=== PATIENT | male | born 1945 | race Caucasian/White ===

== ENCOUNTER → 2017-03-20 | Outpatient (REF) | payer MEDICARE, OTHER ==
[2017-03-20 11:42] LABS: CHOLESTEROL LEVEL 198 MG/DL (<200); HDL CHOLESTEROL 55 MG/DL (>40); LDL CHOLESTEROL 112.8 MG/DL (<100); NON-HDL-C 143 MG/DL; TRIGLYCERIDES LEVEL 151 MG/DL (<150)
== END ==
LOC: M SFHCCLAY 08:47
DX: Z00.00 Encounter for general adult medical examination without abnormal findings (principal); E78.00 Pure hypercholesterolemia, unspecified
CPT/HCPCS: 80061

== ENCOUNTER → 2017-10-22 | Outpatient (REF) | payer MEDICARE, OTHER ==
[2017-10-22 14:10] LABS: BLOOD UREA NITROGEN 16 MG/DL (7-18)
[2017-10-22 14:10] LABS: CREATININE FOR GFR 0.83 MG/DL (0.70-1.30); GLOMERULAR FILTRATION RATE > 60.0 (>42)
== END ==
LOC: M LABDRAWC 11:29
DX: M77.11 Lateral epicondylitis, right elbow (principal)
CPT/HCPCS: 82565

== ENCOUNTER → 2017-11-10 | Outpatient (CLI) | payer MEDICARE, BC, OTHER ==
[~2017-11-10] MED LIST: CONRAY-43 43% 50ML VIAL (Q9960) As Ordered; PROHANCE 279.3MG/ML 15ML VIAL (A9576) As Ordered
== END ==
LOC: M RADPRO 06:21
DX: M77.11 Lateral epicondylitis, right elbow (principal); M25.421 Effusion, right elbow
CPT/HCPCS: 24220

== ENCOUNTER → 2017-11-24 | Outpatient (REF) | payer MEDICARE, OTHER ==
[2017-11-24 12:13] LABS: ANION GAP 7 MEQ/L (8-16); BLOOD UREA NITROGEN 18 MG/DL (7-18); CALCIUM LEVEL 8.9 MG/DL (8.8-10.2); CARBON DIOXIDE LEVEL 28 MEQ/L (21-32); CHLORIDE LEVEL 109 MEQ/L (98-107); CREATININE FOR GFR 0.73 MG/DL (0.70-1.30); GLOMERULAR FILTRATION RATE > 60.0 (>42); GLUCOSE, FASTING 86 MG/DL (70-100); POTASSIUM SERUM 4.8 MEQ/L (3.5-5.1); SODIUM LEVEL 144 MEQ/L (136-145)
== END ==
LOC: M LABDRAWC 11:18
DX: M25.521 Pain in right elbow (principal)
CPT/HCPCS: 80048

== ENCOUNTER → 2017-11-26 | Outpatient (REF) | payer MEDICARE, OTHER ==
[2017-11-26 15:15] LABS: BASO % 0.5 % (0.0-1.0); EOS # 0.1 10^3/uL (0.0-0.50); HEMATOCRIT 46.8 % (42.0-52.0); HEMOGLOBIN 15.8 g/dl (13.5-17.5); IMMATURE GRANULOCYTE % 0.2 % (0-3.0); LYMPH # 1.5 10^3/uL (1.5-4.5); LYMPH % 33.6 % (24.0-44.0); MEAN CORPUSCULAR HEMOGLOBIN 30.8 pg (27.0-33.0); MEAN CORPUSCULAR HGB CONC 33.8 g/dl (32.0-36.5); MEAN CORPUSCULAR VOLUME 91.2 fl (80.0-96.0); MONO # 0.4 10^3/uL (0.0-0.8); MONO % 9.7 % (0.0-5.0); NEUTROPHILS # 2.4 10^3/uL (1.8-7.7); PLATELET COUNT, AUTOMATED 230 10^3/uL (150-450); RED BLOOD COUNT 5.13 10^6/uL (4.30-6.10); RED CELL DISTRIBUTION WIDTH 12.3 % (11.5-14.5); WHITE BLOOD COUNT 4.4 10^3/uL (4.0-10.0)
[2017-11-26 15:24] LABS: C REACTIVE PROTEIN QUANTITATIV < 0.30 MG/DL (0.00-0.30); RHEUMATOID FACTOR QUANT < 10.0 IU/ML (<15.0)
[2017-11-26 15:24] LABS: URIC ACID 5.5 MG/DL (3.5-7.2)
[2017-11-28 00:06] LABS: ERYTHROPOIETIN 10.7 mIU/mL (2.6-18.5); Lyme Disease IgG/IgM Antibodie <0.91 ISR (0.00-0.90); Lyme Disease IgM Ab Quantitati <0.80 index (0.00-0.79)
== END ==
LOC: M LABDRAW1 13:05
DX: M17.12 Unilateral primary osteoarthritis, left knee (principal)
CPT/HCPCS: 84550

== ENCOUNTER → 2018-02-12 | Outpatient (CLI) | payer MEDICARE, OTHER | LOC: M CLY 10:03 | DX: J98.4 Other disorders of lung (principal); R06.02 Shortness of breath | CPT/HCPCS: 71046 ==

== ENCOUNTER → 2018-02-18 | Outpatient (CLI) | payer MEDICARE, BC, OTHER ==
[~2018-02-18] MED LIST changes: -CONRAY-43 43% 50ML VIAL (Q9960) As Ordered; +METHACHOLINE KIT (J7674) INH; -PROHANCE 279.3MG/ML 15ML VIAL (A9576) As Ordered
== END ==
LOC: M CARPUL 09:30
DX: R06.02 Shortness of breath (principal)
CPT/HCPCS: J7674

== ENCOUNTER → 2018-12-24 | Outpatient (REF) | payer MEDICARE, OTHER ==
[2018-12-24 12:23] LABS: BASO % 0.4 % (0.0-1.0); EOS # 0.1 10^3/uL (0.0-0.5); EOS % 2.6 % (0.0-3.0); HEMATOCRIT 45.6 % (42.0-52.0); HEMOGLOBIN 14.8 g/dl (13.5-17.5); LYMPH # 1.8 10^3/uL (1.5-5.0); LYMPH % 40.2 % (24.0-44.0); MEAN CORPUSCULAR HEMOGLOBIN 29.8 pg (27.0-33.0); MEAN CORPUSCULAR HGB CONC 32.5 g/dl (32.0-36.5); MEAN CORPUSCULAR VOLUME 91.9 fl (80.0-96.0); MONO # 0.4 10^3/uL (0.0-0.8); MONO % 8.6 % (0.0-5.0); NEUTROPHILS # 2.2 10^3/uL (1.5-8.5); PLATELET COUNT, AUTOMATED 216 10^3/uL (150-450); RED BLOOD COUNT 4.96 10^6/uL (4.30-6.10); WHITE BLOOD COUNT 4.5 10^3/uL (4.0-10.0)
[2018-12-24 12:45] LABS: ALBUMIN 3.9 GM/DL (3.2-5.2); ALT/SGPT 30 U/L (12-78); BILIRUBIN,TOTAL 0.7 MG/DL (0.2-1.0); BLOOD UREA NITROGEN 19 MG/DL (7-18); CALCIUM LEVEL 9.1 MG/DL (8.8-10.2); CARBON DIOXIDE LEVEL 28 MEQ/L (21-32); CHLORIDE LEVEL 108 MEQ/L (98-107); CHOLESTEROL LEVEL 152 MG/DL (<200); CREATININE FOR GFR 0.84 MG/DL (0.70-1.30); FREE T4 0.91 NG/DL (0.76-1.46); GLOMERULAR FILTRATION RATE > 60.0 (>42); GLUCOSE, FASTING 65 MG/DL (70-100); HDL CHOLESTEROL 51 MG/DL (>40); LDL CHOLESTEROL 80 MG/DL (<100); NON-HDL-C 101 MG/DL; POTASSIUM SERUM 4.4 MEQ/L (3.5-5.1); SODIUM LEVEL 142 MEQ/L (136-145); TOTAL PROTEIN 7.1 GM/DL (6.4-8.2); TRIGLYCERIDES LEVEL 104 MG/DL (<150)
== END ==
LOC: M SFHCCLAY 08:38
PROVIDERS: ATTEND Family Medicine
DX: R42 Dizziness and giddiness (principal); Z23 Encounter for immunization
CPT/HCPCS: 80053; 80061; 84439; 84443; 85025; 90471; 90682; G0008; G0463

== ENCOUNTER → 2019-07-12 | Outpatient (REF) | payer MEDICARE, OTHER | LOC: M LAB REF 18:16 | PROVIDERS: ATTEND Dermatology | DX: L57.0 Actinic keratosis (principal); D23.5 Other benign neoplasm of skin of trunk | CPT/HCPCS: 11102; 11103; 88305; G0463 ==

== ENCOUNTER → 2020-03-02 | Outpatient (CLI) | payer MEDICARE, BC ==
[~2020-03-02] MED LIST changes: +D-40TAB2 PO; +FLAX1CAP5 PO; +L-LY500T9 PO; -METHACHOLINE KIT (J7674) INH; +THERTAB52 PO
--- NOTE | 2020-03-02 08:16 | REP ---
INDICATION: OSTEOARTHRITIS LEFT KNEE PRE OP CHEST. COMPARISON: PA and lateral chest dated 02/12/2018. TECHNIQUE: Upright PA and lateral chest. FINDINGS: The lung horton are clear. Except for a small linear parenchymal scar in the left costophrenic angle, unchanged. Cardiac size is normal. The jose, mediastinum and skeletal structures are unremarkable. IMPRESSION: Essentially negative PA and lateral chest <Electronically signed by Lui Mathew > 03/02/20 0812
[2020-03-02 12:27] LABS: HEMATOCRIT 47.4 % (42.0-52.0); HEMOGLOBIN 15.5 g/dl (13.5-17.5); MEAN CORPUSCULAR HEMOGLOBIN 29.9 pg (27.0-33.0); MEAN CORPUSCULAR HGB CONC 32.7 g/dl (32.0-36.5); MEAN CORPUSCULAR VOLUME 91.5 fl (80.0-96.0); PLATELET COUNT, AUTOMATED 206 10^3/uL (150-450); RED BLOOD COUNT 5.18 10^6/uL (4.30-6.10); WHITE BLOOD COUNT 5.5 10^3/uL (4.0-10.0)
[2020-03-02 12:38] LABS: INR 0.95; PROTHROMBIN TIME 12.9 SECONDS (12.5-14.3)
[2020-03-02 12:48] LABS: ERYTHROCYTE SEDIMENTATION RATE 4 mm/hr (0-20)
[2020-03-02 12:51] LABS: ALT/SGPT 27 U/L (12-78); BILIRUBIN,TOTAL 0.8 MG/DL (0.2-1.0); BLOOD UREA NITROGEN 24 MG/DL (7-18); CALCIUM LEVEL 9.2 MG/DL (8.8-10.2); CARBON DIOXIDE LEVEL 29 MEQ/L (21-32); CHLORIDE LEVEL 106 MEQ/L (98-107); GLOMERULAR FILTRATION RATE > 60.0 (>42); GLUCOSE, FASTING 90 MG/DL (70-100); POTASSIUM SERUM 4.7 MEQ/L (3.5-5.1); SODIUM LEVEL 142 MEQ/L (136-145); TOTAL PROTEIN 6.9 GM/DL (6.4-8.2)
== END ==
LOC: M CLY 07:45
PROVIDERS: ATTEND Orthopaedic Surgery
DX: Z01.818 Encounter for other preprocedural examination (principal); M17.11 Unilateral primary osteoarthritis, right knee

== ENCOUNTER → 2020-03-14 | Outpatient (CLI) | payer MEDICARE, BC, OTHER | LOC: M LABSMTC 13:50 | PROVIDERS: ATTEND Anesthesiology | DX: Z01.812 Encounter for preprocedural laboratory examination (principal); Z20.828 Contact with and (suspected) exposure to other viral communicable diseases ==

== ENCOUNTER 2020-03-19 06:14 | Inpatient (IN) | payer MEDICARE, BC, OTHER ==
[2020-03-19] VITALS (7 sets, daily range): BP systolic 118–136; BP diastolic 65–80
[~2020-03-19] VITALS: Ht 188 cm; Wt 93.8 kg
[~2020-03-19 06:14] MED LIST changes: +LIDOCAINE 1% MDV 20ML VIAL SQ PRN; +LR 1,000 ML IV ONE; +ceFAZolin SOD 2 GM in IV 1 EA IV ONE
[2020-03-19] MEDS ORDERED: LIDOCAINE 2% 100MG/5ML SDV (FOR ANES.) As Ordered ONE (07:02)
[2020-03-19] MEDS ORDERED: propofoL 200 MG/20 ML VIAL As Ordered ONE ×2 (07:02→09:13)
[2020-03-19] MEDS ORDERED: BUPIVACAINE LIPOSOME/PF 1.3% 20ML VIAL (13.3MG/ML)(EXPAREL)(C9290 PER1MG) As Ordered ONE (07:12)
[2020-03-19] MEDS ORDERED: ceFAZolin 1GM VIAL (J0690 PER 500MG) As Ordered ONE (07:12)
[2020-03-19] MEDS ORDERED: EPINEPHrine INJ 1 MG/ML 1ML AMP As Ordered ONE (07:12)
[2020-03-19] MEDS ORDERED: TRANEXAMIC ACID 100 MG/ML 10ML VIAL As Ordered ONE (07:12)
[2020-03-19] MEDS ORDERED: BUPIVACAINE HCL 0.25% 10ML VIAL As Ordered ONE (07:12)
[2020-03-19] MEDS ORDERED: dexameTHASONE 10MG/1ML VIAL PRES.FREE (J1100 PER 1MG) XX ONE (07:15)
[2020-03-19] MEDS ORDERED: ROPIvacaine 0.5% 30ML INJECTION (J2795 PER 1MG) XX ONE (07:15)
[2020-03-19] MEDS ORDERED: LIDOCAINE 1% MDV 20ML VIAL XX ONE (07:15)
[2020-03-19] MEDS: MIDAZOLAM INJ 2MG/2ML VIAL (J2250 PER 1MG) IV PRN ×2 (07:18→07:19)
[2020-03-19] MEDS: fentaNYL 100 MCG/2 ML INJECTION (J3010) IV PRN ×2 (07:19→14:25)
--- NOTE | 2020-03-19 08:03 | IPN ---
PROGRESS NOTE DATE: 03/19/2020 Patient seen and examined. He wishes to go ahead with a left total knee arthroplasty. He understands the nature of this and the risks of bleeding, infection, damage to nerves, vessels, possible persistent pain, wear, loosening, blood clots, medical problems, among others.
--- NOTE | 2020-03-19 10:03 | RO ---
OPERATIVE NOTE DATE OF OPERATION: 03/19/2020 PREOPERATIVE DIAGNOSIS: Left knee osteoarthritis. POSTOPERATIVE DIAGNOSIS: Left knee osteoarthritis. PROCEDURE: Left total knee arthroplasty using an Attune rotating platform posterior stabilized size 6 femur, size 7 tibial tray, 8 polyethylene, 38 patellar button. SURGEON: Edgar Jarrell MD. ANESTHESIA: Spinal. EBL: 50. COMPLICATIONS: None. INDICATIONS: A 74-year-old gentleman who has had gradually worsening left knee pain. He wished to go ahead with a knee replacement. He understood the nature and risks associated with it. DESCRIPTION OF PROCEDURE: The patient was taken to the operating room and placed in the supine position. After spinal anesthesia was induced, the left lower extremity was prepped and draped in the usual sterile fashion. Time out was performed. Longitudinal incision was made over the anterior aspect of the knee. Subcutaneous dissection was carried out sharply. I then performed a medial parapatellar arthrotomy per routine, everted the patella, flexed the knee up, used the canal initiating reamer on the femoral side followed by the intramedullary guide set at 5 degrees of valgus, 9 mm cut. This was pinned in place, and I ended up taking 2 extra millimeters due to a flexion contracture. We then sized the femur to be a 4. This was secured with a cutting block, and the remaining cuts were made. I then placed the posterior retractor and prepared the tibial surface. The proximal tibia cut was made removing about 4 mm off the low side. This bone was removed, and the PCL remained intact. I then prepared the sulcus cut followed by the tibial tray which a size 7 fit nicely. I had used a school director to remove soft tissue and osteophytes from either side of the knee. Once the tibial tray was prepared, I then placed the trial components and was unhappy with the stability and soft tissue balance in flexion and extension. I ended up going with a posterior stabilized because the femur was lifting off in flexion, and despite trying to free up the PCL, it was simply too tight. I then prepared the box. The excess bone was removed from the box, and the trial components were then placed, and I was very pleased with the size 8 polyethylene with excellent soft tissue balance in flexion and extension and excellent range of motion. I controlled hemostasis with a cautery. I had done a medial release as well. Any remaining osteophytes were removed. I then freehand the cut the patella removing about 7 or 8 mm of bone. I sized it to be a 38. Drill holes were placed. The trial button was placed, and the knee was put through a range of motion. The patella tracked very nicely. The remaining drill holes were placed at the end of the femur, and the trial components were removed. I injected the Exparel in the deep tissues. The patient clerical assistant prepared the bone cement in the modern technique. I then cemented in the components, removed all excess bone cement, and brought the knee out in some extension. We irrigated copiously and placed the TXA in the deep wound and then closed the deep layer with #1 Vicryl suture and running Stratafix, and a final deep wound irrigation was performed prior to final closure. We then closed the subcu with 2-0 Vicryl and the skin with garett. Sterile dressing was applied. Tourniquet was deflated once the cement had hardened. Patient was taken to the recovery room in stable condition. There were no known complications. Plan will be routine postop. The patient clerical assistant was instrumental in holding retractors and assisting in mixing the bone cement and assisting in wound closure.
--- NOTE | 2020-03-19 10:28 | REP ---
INDICATION: POST OP IN PACU 2238. COMPARISON: None. TECHNIQUE: Two views obtained portably. FINDINGS: Two views of the left knee demonstrate left knee arthroplasty components in good position relative to each other and there are habematolel bones.. No fracture or subluxation is seen. Anterior skin garett are seen. Intra-articular and periarticular soft tissue emphysema is visible. Some vascular calcification is noted.. IMPRESSION: Status post left knee arthroplasty.. <Electronically signed by Rocco Cleveland > 03/19/20 [id number]
[2020-03-19] MEDS ORDERED: fentaNYL 100 MCG/2 ML INJECTION (J3010) IV PRN (10:30)
[2020-03-19] MEDS ORDERED: HYDROMORPHONE HCL 0.5 MG/ 0.5 ML SYRINGE (J1170 PER 1) IV PRN (10:30)
[2020-03-19] MEDS ORDERED: LR 1,000 ML IV SCH ×2 (10:30→11:30)
[2020-03-19] MEDS ORDERED: ONDANSETRON 4MG/2ML VIAL IV PRN ×2 (10:30→11:30)
[2020-03-19] MEDS ORDERED: oxyCODONE 5MG TAB PO PRN (10:30)
[2020-03-19] MEDS ORDERED: ACETAMINOPHEN TAB 650MG DOSE (2X325MG) PO PRN (11:30)
[2020-03-19] MEDS ORDERED: PERCOCET 5MG/325MG TAB PO PRN ×2 (11:30→17:00)
[2020-03-19] MEDS ORDERED: MORPHINE 4 MG/ML 1ML VIAL/SYRINGE (J2270) IV PRN (11:30)
[2020-03-19] MEDS ORDERED: MORPHINE 2 MG/ML 1ML VIAL (J2270) IV PRN (11:30)
--- NOTE | 2020-03-19 12:17 | HPEPDOC ---
[facility] Medical History & Physical Date of Admission Mar 19, 2020 Date of Service: Mar 19, 2020 Attending Physician: Xiomara Johnson MD History and Physical MEDICAL H&P HISTORY OF PRESENT ILLNESS: Patient is a 74-year-old male with past medical history of anxiety, symptomatic osteoarthritis of bilateral knees who presented to [facility] on 03/19/2020 for elective total knee arthroplasty. The patient has had progressively worsening left knee pain and stiffness, failed to improve with conservative management as outpatient. He is also received a prior knee scope and injections in the past which did not help much. His knee pain continue to affect his activities of daily living and weightbearing activities. There were no complications pre-, during and post-operation. Post-op patient's VS were stable. He had no acute complaints. He denied chest pain, shortness of breath, n/v/d, fevers, chills, lightheadedness, dizziness and was AAOx3. REVIEW OF SYSTEMS: CONSTITUTIONAL: Denies lack of energy, unexplained weight gain or weight loss, loss of appetite, fever, night sweats EYES: Denies eye drainage, eye pain, visual changes, dry/irritated eye EARS, NOSE, MOUTH, THROAT: Denies difficulty hearing, ringing in ears, mouth sores, loose teeth, sore throat, facial numbness or pain NECK: Denies swollen glands CARDIOVASCULAR: Denies irregular heartbeat, racing heart, chest pains, swelling of feet or legs, pain in legs with walking RESPIRATORY: Denies shortness of breath, night sweats, wheezing, sputum production, oxygen at home, coughing up blood, cough lasting > 1 month GASTROINTESTINAL: Denies abdominal pain, constipation, bloody stool, diarrhea, heartburn, nausea, vomiting GENITOURINARY: Denies painful urination, bloody urine, frequent urination, urgency, leaking urine, impotence MUSCULOSKELETAL: Denies muscle pain INTEGUMENTARY: Denies rash, itching, new skin lesion, change in existing skin lesion, hair loss or increase, breast changes. NEUROLOGICAL: Denies headaches, dizziness, difficulty walking, numbness or tingling PSYCHIATRIC: Denies depression, anxiety, recurrent bad thoughts, mood swings, hallucinations PAST MEDICAL HISTORY: Anxiety Bilateral knee OA PAST SURGICAL HISTORY: Bilateral shoulder rotator cuff repairs Juan Krishna surgery right elbow Left wrist surgery Lateral knee scopes Bilateral foot surgeries FAMILY HISTORY: Family history of thyroid disease, cancer, Parkinson's disease, hypothyroidism and heart disease SOCIAL HISTORY: Used to smoke 1 pack per day for 18 years, quit at age 27. Drinks very little alcohol, possibly twice a year. Denies illicit drug use. Lives with his in the local area. Walks independently and follows up with his primary care physician rarely. The patient is very active and attends the 5 times per week. He is a full code. ALLERGIES: Please see below. HOME MEDICATIONS: Please see below. PHYSICAL EXAMINATION: VS: please see below CONSTITUTIONAL: No acute distress, resting comfortably, AAO x 3 EYES: PERRLA, EOM intact HENT, MOUTH: Normocephalic, atraumatic, moist mucous membranes, NECK: SUPPLE, no JVD, no lymphadenopathy, no carotid bruit CV: Regular rate and rhythm, S1S2 normal, no murmurs/rubs/gallops RESPIRATORY: Clear to auscultation bilaterally, no rales/rhonchi/wheezes GI: BS positive in 4 quadrants, soft, nontender, nondistended, no rebound or guarding, no organomegaly : Deferred MUSCULOSKELETAL: Left lower ext [place] bandaged, no increased swelling or erythema around bandaging, ROM and gait not tested. No cyanosis, clubbing, joint deformity, extremity edema INTEGUMENTARY: Intact, no rashes, no lesions, no erythema NEUROLOGIC: Cranial Nerves II-XII are intact, no focal deficits PSYCHIATRIC: Mood and affect are normal LABORATORY DATA: Please see below IMAGING: Left knee XR post-op: Two views of the left knee demonstrate left knee arthroplasty components in good position relative to each other and there are [place] bones.. No fracture or subluxation is seen. Anterior skin garett are seen. Intra-articular and periarticular soft tissue emphysema is visible. Some vascular calcification is noted.. ASSESSMENT: 74 y/o M with PMH of anxiety, bilateral knee arthritis admitted post-op left knee arthroplasty. PLAN: Left knee OA s/p left knee arthroplasty, Post-op day 0 -No complications during, post-op -Pain control, PT/OT per ortho -Ortho primary Anxiety -Stable -Not on home medications DVT px -Xarelto DISPOSITION: Thank you kindly for this consult. Will continue to follow patient while inpatient. Vital Signs Vital Signs Date Time Temp Pulse Resp B/P (MAP) Pulse Ox O2 Delivery O2 Flow Rate FiO2 03/19/20 10:35 58 16 142/91 (108) 100 Room Air 03/19/20 10:05 96.4 03/19/20 07:30 3 Home Medications Scheduled Cholecalciferol (Vitamin D3) (Vitamin D-400) 10 Mcg Tablet, 10 MCG PO DAILY Flaxseed Oil (Flaxseed Oil) 1,000 Mg Capsule, Unknown Dose PO DAILY Lysine HCl (l-Lysine) 500 Mg Tablet, Unknown Dose PO DAILY Multivitamin,Therapeutic (Thera-Tabs) 1 Each Tablet, 1 TAB PO DAILY Allergies Coded Allergies: buspirone (Verified Allergy, Intermediate, felt like electrical zing pubic bone up to tongue, 03/19/20) A-FIB/CHADSVASC A-FIB History Current/History of A-Fib/PAF?: No Current PO Anticoag Therapy: No Age/Risk Factor Scoring CHADSVASC: CHADSVASC Response (Comments) Value Age Risk Factor Age 65-74 years old 1 Gender Risk Factor Male 0 Hx of CHF No 0 Hx of HTN No 0 Hx of Stroke/TIA/or VTE No 0 Hx of Diabetes No 0 Hx of Vascular Disease No 0 Total 1 Treatment Treatment ordered: Rivaroxaban Other anticoagulant ordered: Xiomara Gibson MD Mar 19, 2020 12:17
[2020-03-19] MEDS: PERCOCET 5MG/325MG TAB PO PRN ×3 (14:24→23:14)
[2020-03-19 15:09] LABS: HEMATOCRIT 47.4 % (42.0-52.0); HEMOGLOBIN 15.4 g/dl (13.5-17.5); MEAN CORPUSCULAR HEMOGLOBIN 29.6 pg (27.0-33.0); MEAN CORPUSCULAR HGB CONC 32.5 g/dl (32.0-36.5); PLATELET COUNT, AUTOMATED 213 10^3/uL (150-450); RED BLOOD COUNT 5.21 10^6/uL (4.30-6.10); WHITE BLOOD COUNT 10.8 10^3/uL (4.0-10.0)
[2020-03-19] MEDS: ceFAZolin SOD 2 GM in IV 1 EA IV SCH ×2 (16:16→23:12)
[2020-03-20 02:00] VITALS: BP 127/71
[2020-03-20] MEDS: PERCOCET 5MG/325MG TAB PO PRN ×2 (04:06→08:25)
[2020-03-20 06:00] VITALS: BP 124/71
[2020-03-20] MEDS ORDERED: MIRALAX *UNIT DOSE* 17GM PACKET PO PRN (06:15)
[2020-03-20 06:19] LABS: HEMATOCRIT 41.6 % (42.0-52.0); HEMOGLOBIN 13.5 g/dl (13.5-17.5); MEAN CORPUSCULAR HEMOGLOBIN 29.5 pg (27.0-33.0); MEAN CORPUSCULAR HGB CONC 32.5 g/dl (32.0-36.5); PLATELET COUNT, AUTOMATED 187 10^3/uL (150-450); RED BLOOD COUNT 4.57 10^6/uL (4.30-6.10); WHITE BLOOD COUNT 11.5 10^3/uL (4.0-10.0)
[2020-03-20] MEDS ORDERED: PERC5TAB12 PO (06:31)
[2020-03-20] MEDS ORDERED: XARE10TA PO (06:31)
[2020-03-20] MEDS ORDERED: MOM 30ML SUSPENSION UDC PO SCH (09:00)
[2020-03-20 10:00] VITALS: BP 121/70
--- NOTE | 2020-03-20 13:46 | IPNPDOC ---
Text Note Date of Service The patient was seen on 03/20/20. NOTE Subjective: Patient seen and examined at bedside. No acute overnight events. No new medical complaints. Objective: General: NAD HEENT: NC/AT Lungs: CTA B/L Heart: +S1S2, RRR Abd: soft, NT, +BS ASSESSMENT: 74 y/o M with PMH of anxiety, bilateral knee arthritis admitted post-op left knee arthroplasty. PLAN: #Left knee OA s/p left knee arthroplasty, Post-op day 1 -Pain control, PT/OT per ortho - follow as per primary team - Ortho #Anxiety -Stable -Not on home medications #DVT px - as per ortho DISPOSITION: As per primary team, orthopedics VS,Kane, I+O VS, Kane, I+O Laboratory Tests 03/19/20 14:48 03/20/20 05:39 Vital Signs Date Time Temp Pulse Resp B/P (MAP) Pulse Ox O2 Delivery O2 Flow Rate FiO2 03/20/20 10:00 97.9 85 18 121/70 (87) 96 Room Air 03/19/20 07:30 3 I&O- Last 24 Hours up to 6 AM 03/20/20 06:00 Intake Total 2240 ml Output Total 50 ml Balance 2190 ml JOVANY GREER MD Mar 20, 2020 13:46
[2020-03-20] MEDS ORDERED: RIVAROXABAN 10 MG TAB (XARELTO) PO SCH (18:00)
--- NOTE | 2020-03-21 10:24 | HPE ---
HISTORY AND PHYSICAL DATE OF ADMISSION: 03/19/2020 ADMITTING DIAGNOSIS: Osteoarthritis, left knee pain and stiffness. HISTORY OF PRESENT ILLNESS: This is a 74-year-old male patient with progressing worsening left knee pain and stiffness when left knee pain and stiffness failed to improve with conservative management, to include injections and a knee scope. His x-rays are notable for end-stage degenerative changes of the left knee, has pain with weightbearing activities and activities of daily living. He has elected for surgery for his continued symptoms. He has been consented by Dr. Jarrell for a left total knee arthroplasty. Medical optimization with Dr. Munguia. CURRENT MEDICATIONS: He takes no prescription medications. He recently discontinued fluoxetine as it had failed to improve his symptoms. ALLERGIES: BUSPAR. MEDICAL HISTORY: Includes anxiety, symptomatic osteoarthritis of the bilateral knees. PRIOR SURGERIES INCLUDE: Bilateral shoulder rotator cuff repairs, CMC joint arthroplasty on the left side, bilateral knee scopes, bilateral foot surgery. | FAMILY HISTORY: History of heart disease, cancer, thyroid disease, Parkinson's and hypothyroidism. SOCIAL HISTORY: He does not smoke, he does not use alcohol. He is retired. REVIEW OF SYSTEMS: Denies fevers or chills. Denies chest pain, shortness of breath or cough. Denies difficulty breathing. Denies abdominal pain. Denies nausea or vomiting. Denies recent exposure to COVID 19. Persistent pain in his left knee with weightbearing activities and activities of daily living. PHYSICAL EXAMINATION: Physical examination today reveals a well-nourished, well-developed male patient. He walks with slight limping gait, favors his left knee. Examination of the left knee reveals skin to be intact. No erythema, edema or ecchymosis. Calf is soft, nontender to palpation. There is irritability with extremes of range of motion on examination today. Patellar grind is irritable. No irritability with hip range of motion. The left leg is intact to light touch. Neck is supple without adenopathy or jugular venous distention (JVD). Lungs are clear to auscultation without rales or wheeze. Heart: Regular rate and rhythm. Abdomen: Bowel sounds are present. Height: 6'3". Weight: 200 pounds. Temperature 97.5. Blood pressure 130/70. Respirations 12. Pulse 68. LABORATORY DATA: Prothrombin time 12.9, INR 0.95, sedimentation rate of 4, WBC count of 5.5, RBC count of 5.1, hemoglobin 15.5, hematocrit 47.4, glucose 90, BUN 24, creatinine 0.9. Sodium 142, potassium 4.7. Electrocardiogram (EKG): Sinus rhythms with premature ventricular contractions (PVCs). Chest x-ray: No acute cardiopulmonary disease process noted. IMPRESSION: Symptomatic osteoarthritis of his left knee. PLAN: He has been consented by Dr. Jarrell for a left total knee arthroplasty. He knows the risks, benefits, preoperative and postoperative instructions. Those were reviewed today. He understands not to take Aleve, Advil or any NSAIDs 5 days prior to surgery, He should discontinue his [id number] medications and vitamins at least 2 days prior to surgery. He understands the importance of self quarantine after his COVID testing. He knows to be on time for the procedure. He understands the current COVID situation and what that amounts currently. We discussed he will probably be in the hospital one day. He understands this is not a pain free procedure and he may have some pain after the surgery. All of his questions were answered. Edgar Jarrell MD [facility]
== END 2020-03-20 13:20 | disposition home or self-care (01) | DRG 470 ==
LOC: M OR 06:14 → M MS5PR 13:55
PROVIDERS: ADMIT Orthopaedic Surgery; ATTEND Orthopaedic Surgery
PROC: 0SRD0J9 Replacement of Left Knee Joint with Synthetic Substitute, Cemented, Open Approach (ICD-10-PCS; principal; 2020-03-19 07:30)
DX: M17.12 Unilateral primary osteoarthritis, left knee (principal)

== ENCOUNTER → 2020-06-12 | Outpatient (REF) | payer MEDICARE, OTHER ==
[~2020-06-12] MED LIST changes: -LIDOCAINE 1% MDV 20ML VIAL SQ PRN; -LR 1,000 ML IV ONE; +PERC5TAB12 PO; +XARE10TA PO; -ceFAZolin SOD 2 GM in IV 1 EA IV ONE
== END ==
LOC: M LAB REF 18:45
PROVIDERS: ATTEND Physician Assistant
DX: L57.0 Actinic keratosis (principal)
CPT/HCPCS: 11102; 17000; 17003; 88305; G0463

== ENCOUNTER → 2021-05-24 | Outpatient (CLI) | payer MEDICARE, BC ==
[~2021-05-24] MED LIST changes: +L-LY500T23 PO; -L-LY500T9 PO
[2021-05-24 11:48] LABS: HEMATOCRIT 44.2 % (42.0-52.0); HEMOGLOBIN 14.6 g/dl (13.5-17.5); MEAN CORPUSCULAR HEMOGLOBIN 30.6 pg (27.0-33.0); MEAN CORPUSCULAR VOLUME 92.7 fl (80.0-96.0); PLATELET COUNT, AUTOMATED 189 10^3/uL (150-450); RED BLOOD COUNT 4.77 10^6/uL (4.30-6.10); WHITE BLOOD COUNT 4.7 10^3/uL (4.0-10.0)
[2021-05-24 12:00] LABS: INR 1.02; PROTHROMBIN TIME 13.8 SECONDS (12.7-14.5)
[2021-05-24 12:18] LABS: ALBUMIN 4.1 GM/DL (3.2-5.2); ALT/SGPT 37 U/L (12-78); BILIRUBIN,TOTAL 1.2 MG/DL (0.2-1.0); BLOOD UREA NITROGEN 21 MG/DL (7-18); CALCIUM LEVEL 9.1 MG/DL (8.8-10.2); CARBON DIOXIDE LEVEL 28 MEQ/L (21-32); CHLORIDE LEVEL 109 MEQ/L (98-107); CREATININE FOR GFR 0.88 MG/DL (0.70-1.30); GLOMERULAR FILTRATION RATE > 60.0 (>42); GLUCOSE, FASTING 87 MG/DL (70-100); POTASSIUM SERUM 4.1 MEQ/L (3.5-5.1); SODIUM LEVEL 142 MEQ/L (136-145); TOTAL PROTEIN 6.9 GM/DL (6.4-8.2)
[2021-05-24 12:22] LABS: ERYTHROCYTE SEDIMENTATION RATE 4 mm/hr (0-20)
== END ==
LOC: M CLY 09:09
PROVIDERS: ATTEND Orthopaedic Surgery
DX: Z01.818 Encounter for other preprocedural examination (principal); M17.11 Unilateral primary osteoarthritis, right knee

== ENCOUNTER → 2021-08-08 | Outpatient (REF) | payer MEDICARE, BC, OTHER | LOC: M SFHCDERM 14:03 | PROVIDERS: ATTEND Physician Assistant | DX: C44.519 Basal cell carcinoma of skin of other part of trunk (principal) | CPT/HCPCS: 11102; 17000; 17003; 88305; G0463 ==

== ENCOUNTER → 2021-10-03 | Outpatient (REF) | payer MEDICARE, OTHER | LOC: M LAB REF 16:40 | PROVIDERS: ATTEND Surgery | DX: C44.519 Basal cell carcinoma of skin of other part of trunk (principal) ==

== ENCOUNTER → 2021-11-22 | Outpatient (CLI) | payer MEDICARE, OTHER ==
[2021-11-22 13:30] LABS: HEMATOCRIT 44.6 % (42.0-52.0); HEMOGLOBIN 14.8 g/dl (13.5-17.5); MEAN CORPUSCULAR HEMOGLOBIN 31.2 pg (27.0-33.0); MEAN CORPUSCULAR HGB CONC 33.2 g/dl (32.0-36.5); MEAN CORPUSCULAR VOLUME 94.1 fl (80.0-96.0); PLATELET COUNT, AUTOMATED 177 10^3/uL (150-450); RED BLOOD COUNT 4.74 10^6/uL (4.30-6.10); WHITE BLOOD COUNT 5.1 10^3/uL (4.0-10.0)
[2021-11-22 14:06] LABS: CK-MB VALUE MASS 1.2 NG/ML (<3.6); MB/CK RELATIVE INDEX 1.43 (< OR =4)
[2021-11-22 14:13] LABS: ALBUMIN 3.8 GM/DL (3.2-5.2); ALT/SGPT 28 U/L (12-78); BILIRUBIN,TOTAL 0.8 MG/DL (0.2-1.0); BLOOD UREA NITROGEN 26 MG/DL (7-18); CALCIUM LEVEL 9.3 MG/DL (8.8-10.2); CARBON DIOXIDE LEVEL 28 MEQ/L (21-32); CHLORIDE LEVEL 110 MEQ/L (98-107); CHOLESTEROL LEVEL 118 MG/DL (<200); CHOLESTEROL RISK RATIO 2.185 (<5); CREATININE FOR GFR 0.78 MG/DL (0.70-1.30); GLOMERULAR FILTRATION RATE > 60.0 (>42); GLUCOSE, FASTING 83 MG/DL (70-100); HDL CHOLESTEROL 54 MG/DL (>40); LDL CHOLESTEROL 50 MG/DL (<100); NON-HDL-C 64 MG/DL; POTASSIUM SERUM 4.9 MEQ/L (3.5-5.1); SODIUM LEVEL 141 MEQ/L (136-145); TOTAL PROTEIN 6.7 GM/DL (6.4-8.2); TRIGLYCERIDES LEVEL 71 MG/DL (<150)
== END ==
LOC: M CLY 07:26
PROVIDERS: ATTEND Physician Assistant
DX: R42 Dizziness and giddiness (principal); I49.3 Ventricular premature depolarization; R07.9 Chest pain, unspecified; Z79.899 Other long term (current) drug therapy

== ENCOUNTER → 2021-12-22 | Outpatient (CLI) | payer MEDICARE, BC, OTHER ==
[~2021-12-22] MED LIST changes: +AMIO200T49 PO; +ASPI-226 PO; +ATOR1TAB21 PO
== END ==
LOC: M LABSMTC 10:13
PROVIDERS: ATTEND Anesthesiology
DX: Z01.812 Encounter for preprocedural laboratory examination (principal); Z20.822 Contact with and (suspected) exposure to COVID-19

== ENCOUNTER 2021-12-26 08:29 | Day surgery (SDC) | payer MEDICARE, BC, OTHER ==
[~2021-12-26] VITALS: Ht 190.5 cm; Wt 89.8 kg
[~2021-12-26 08:29] MED LIST changes: +NS 1,000 ML IV ONE
[2021-12-26] MEDS ORDERED: propofoL 500 MG/50 ML VIAL As Ordered ONE (08:31)
[2021-12-26 10:14] VITALS: BP 146/83
== END 2021-12-26 10:15 | disposition home or self-care (01) ==
LOC: M OPP 08:29
PROVIDERS: ATTEND Surgery
DX: Z12.11 Encounter for screening for malignant neoplasm of colon (principal); D12.2 Benign neoplasm of ascending colon; K64.0 First degree hemorrhoids; Z79.02 Long term (current) use of antithrombotics/antiplatelets; Z79.1 Long term (current) use of non-steroidal anti-inflammatories (NSAID); Z79.52 Long term (current) use of systemic steroids; Z79.899 Other long term (current) drug therapy; Z88.8 Allergy status to other drugs, medicaments and biological substances; Z99.89 Dependence on other enabling machines and devices; G47.30 Sleep apnea, unspecified; I48.91 Unspecified atrial fibrillation; F41.9 Anxiety disorder, unspecified; Z86.73 Personal history of transient ischemic attack (TIA), and cerebral infarction without residual deficits; Z85.828 Personal history of other malignant neoplasm of skin; Z87.891 Personal history of nicotine dependence

== ENCOUNTER → 2022-03-06 | Outpatient (REF) | payer MEDICARE, BC, OTHER ==
[~2022-03-06] MED LIST changes: -NS 1,000 ML IV ONE
== END ==
LOC: M SFHCDERM 13:51
PROVIDERS: ATTEND Physician Assistant
DX: D49.2 Neoplasm of unspecified behavior of bone, soft tissue, and skin (principal); C44.529 Squamous cell carcinoma of skin of other part of trunk
CPT/HCPCS: 11102; 17000; 88305; G0463

== ENCOUNTER → 2022-03-25 | Outpatient (REF) | payer MEDICARE, OTHER | LOC: M LAB REF 17:11 | PROVIDERS: ATTEND Surgery | DX: C44.529 Squamous cell carcinoma of skin of other part of trunk (principal) ==

== ENCOUNTER → 2022-05-19 | Outpatient (REF) | payer MEDICARE, OTHER ==
[2022-05-19 11:50] LABS: BASO % 0.5 % (0.0-1.0); EOS # 0.1 10^3/uL (0.0-0.5); EOS % 2.4 % (0.0-3.0); HEMATOCRIT 46.1 % (42.0-52.0); HEMOGLOBIN 15.2 g/dl (13.5-17.5); LYMPH # 1.7 10^3/uL (1.5-5.0); MEAN CORPUSCULAR VOLUME 93.9 fl (80.0-96.0); MONO # 0.5 10^3/uL (0.0-0.8); MONO % 8.5 % (2.0-8.0); NEUTROPHILS # 3.4 10^3/uL (1.5-8.5); NEUTROPHILS % 58.9 % (36.0-66.0); PLATELET COUNT, AUTOMATED 200 10^3/uL (150-450); RED BLOOD COUNT 4.91 10^6/uL (4.30-6.10); WHITE BLOOD COUNT 5.8 10^3/uL (4.0-10.0)
[2022-05-19 12:13] LABS: ALBUMIN 3.8 G/DL (3.2-5.2); ALKALINE PHOSPHATASE 72 U/L (46-116); ALT/SGPT 37 U/L (7.0-40); AST/SGOT 26 U/L (<34); BILIRUBIN,TOTAL 0.9 MG/DL (0.3-1.2); BLOOD UREA NITROGEN 20 MG/DL (9-23); CALCIUM LEVEL 8.5 MG/DL (8.3-10.6); CARBON DIOXIDE LEVEL 29 MMOL/L (20-31); CHLORIDE LEVEL 106 MMOL/L (98-107); CREATININE FOR GFR 0.92 MG/DL (0.70-1.30); GLOMERULAR FILTRATION RATE > 60.0 (>42); GLUCOSE, FASTING 91 MG/DL (74-106); POTASSIUM SERUM 4.5 MMOL/L (3.5-5.1); SODIUM LEVEL 140 MMOL/L (136-145); THYROID STIMULATING HORMONE 1.975 uIU/ML (0.55-4.78); TOTAL PROTEIN 6.7 G/DL (5.7-8.2)
== END ==
LOC: M LABDRAWC 11:16
PROVIDERS: ATTEND Internal Medicine Cardiovascular Disease
DX: I49.3 Ventricular premature depolarization (principal); R94.31 Abnormal electrocardiogram [ECG] [EKG]; R00.1 Bradycardia, unspecified; I35.1 Nonrheumatic aortic (valve) insufficiency; I34.0 Nonrheumatic mitral (valve) insufficiency; G47.33 Obstructive sleep apnea (adult) (pediatric)

== ENCOUNTER → 2022-05-22 | Outpatient (CLI) | payer MEDICARE, OTHER | LOC: M CLY 13:59 | PROVIDERS: ATTEND Physician Assistant | DX: I49.3 Ventricular premature depolarization (principal); M47.9 Spondylosis, unspecified; J84.10 Pulmonary fibrosis, unspecified ==

== ENCOUNTER → 2022-09-25 | Outpatient (REF) | payer MEDICARE, OTHER ==
[2022-09-25 12:16] LABS: BLOOD UREA NITROGEN 24 MG/DL (9-23); CALCIUM LEVEL 9.8 MG/DL (8.3-10.6); CARBON DIOXIDE LEVEL 29 MMOL/L (20-31); CHLORIDE LEVEL 107 MMOL/L (98-107); CHOLESTEROL LEVEL 127 MG/DL (<200); CHOLESTEROL RISK RATIO 2.56 (<5); CREATININE FOR GFR 0.88 MG/DL (0.70-1.30); GLOMERULAR FILTRATION RATE > 60.0 (>42); GLUCOSE, FASTING 84 MG/DL (74-106); HDL CHOLESTEROL 49.5 MG/DL (>40); LDL CHOLESTEROL 59.9 MG/DL (<100); NON-HDL-C 77.5 MG/DL; POTASSIUM SERUM 4.6 MMOL/L (3.5-5.1); SODIUM LEVEL 142 MMOL/L (136-145); TRIGLYCERIDES LEVEL 88 MG/DL (<150)
== END ==
LOC: M SFHCCLAY 08:39
PROVIDERS: ATTEND Nurse Practitioner Family
DX: F41.9 Anxiety disorder, unspecified (principal); E78.5 Hyperlipidemia, unspecified; G47.33 Obstructive sleep apnea (adult) (pediatric); R00.2 Palpitations

== ENCOUNTER → 2022-11-28 | Outpatient (CLI) | payer MEDICARE, OTHER | LOC: M CLY 07:45 | PROVIDERS: ATTEND Physician Assistant | DX: I49.3 Ventricular premature depolarization (principal); Z79.899 Other long term (current) drug therapy ==

== ENCOUNTER → 2022-11-28 | Outpatient (REF) | payer MEDICARE, OTHER ==
[2022-11-28 13:47] LABS: ALBUMIN 3.9 G/DL (3.2-5.2); BILIRUBIN,DIRECT 0.4 MG/DL (<0.4); BILIRUBIN,TOTAL 0.8 MG/DL (0.3-1.2); MAGNESIUM LEVEL 2.1 MG/DL (1.8-2.4); TOTAL PROTEIN 6.9 G/DL (5.7-8.2)
[2022-11-28 13:48] LABS: THYROID STIMULATING HORMONE 1.461 uIU/ML (0.55-4.78)
== END ==
LOC: M LABDRAWC 11:54
PROVIDERS: ATTEND Physician Assistant
DX: I49.3 Ventricular premature depolarization (principal); Z79.899 Other long term (current) drug therapy

== ENCOUNTER → 2022-12-11 | Outpatient (REF) | payer MEDICARE, OTHER | LOC: M SFHCDERM 15:32 | PROVIDERS: ATTEND Physician Assistant | DX: C44.519 Basal cell carcinoma of skin of other part of trunk (principal); D23.39 Other benign neoplasm of skin of other parts of face ==

== ENCOUNTER → 2023-03-31 | Outpatient (REF) | payer MEDICARE, BC, OTHER ==
[2023-03-31 12:26] LABS: ALKALINE PHOSPHATASE 72 U/L (46-116); ALT/SGPT 30 U/L (7.0-40); AST/SGOT 23 U/L (<34); BILIRUBIN,TOTAL 0.9 MG/DL (0.3-1.2); BLOOD UREA NITROGEN 18 MG/DL (9-23); CALCIUM LEVEL 9.2 MG/DL (8.3-10.6); CARBON DIOXIDE LEVEL 29 MMOL/L (20-31); CHLORIDE LEVEL 107 MMOL/L (98-107); CHOLESTEROL LEVEL 113 MG/DL (<200); CHOLESTEROL RISK RATIO 2.19 (<5); CREATININE FOR GFR 0.87 MG/DL (0.70-1.30); GLOMERULAR FILTRATION RATE > 60.0 (>42); GLUCOSE, FASTING 94 MG/DL (74-106); HDL CHOLESTEROL 51.4 MG/DL (>40); LDL CHOLESTEROL 46.6 MG/DL (<100); NON-HDL-C 61.6 MG/DL; SODIUM LEVEL 140 MMOL/L (136-145); THYROID STIMULATING HORMONE 1.189 uIU/ML (0.55-4.78); TOTAL PROTEIN 6.8 G/DL (5.7-8.2); TRIGLYCERIDES LEVEL 75 MG/DL (<150)
[2023-03-31 12:27] LABS: FREE T4 1.39 NG/DL (0.89-1.76)
[2023-03-31 12:38] LABS: HEMOGLOBIN A1c 5.5 % (4.0-6.0)
== END ==
LOC: M SFHCCLAY 08:19
PROVIDERS: ATTEND Nurse Practitioner Family
DX: Z00.00 Encounter for general adult medical examination without abnormal findings (principal); J30.9 Allergic rhinitis, unspecified; Z85.828 Personal history of other malignant neoplasm of skin; F41.9 Anxiety disorder, unspecified; G47.33 Obstructive sleep apnea (adult) (pediatric); E78.5 Hyperlipidemia, unspecified; R09.81 Nasal congestion; R00.2 Palpitations; Z79.899 Other long term (current) drug therapy

== ENCOUNTER → 2023-05-29 | Outpatient (CLI) | payer MEDICARE, BC | LOC: M PLAIMG 07:24 | PROVIDERS: ATTEND Physician Assistant | DX: I08.0 Rheumatic disorders of both mitral and aortic valves (principal); I77.810 Thoracic aortic ectasia; R00.1 Bradycardia, unspecified ==

== ENCOUNTER → 2023-06-29 | Outpatient (REF) | payer MEDICARE, BC ==
[2023-06-30 12:40] LABS: APPEARANCE, URINE CLEAR (CLEAR); BACTERIA, URINE AUTO NEGATIVE (NEGATIVE); BILIRUBIN, URINE AUTO NEGATIVE (NEGATIVE); BLOOD, URINE BLOOD NEGATIVE (NEGATIVE); COLOR, URINE YELLOW (YELLOW); GLUCOSE, URINE (UA) AUTO NEGATIVE (NEGATIVE); KETONE, URINE AUTO NEGATIVE (NEGATIVE); LEUKOCYTE ESTERASE, URINE AUTO NEGATIVE (NEGATIVE); NITRITE, URINE AUTO NEGATIVE (NEGATIVE); PROTEIN, URINE AUTO NEGATIVE (NEGATIVE); RBC, URINE AUTO 0 /HPF (0-3); SPECIFIC GRAVITY URINE AUTO 1.008 (1.002-1.035); SQUAMOUS EPITHELIAL CELL UR AU 0 /HPF (0-6); UROBILINOGEN, URINE AUTO 0.2 mg/dL (0.0-2.0); WBC, URINE AUTO 1 /HPF (0-3)
== END ==
LOC: M SFHCCLAY 14:42
PROVIDERS: ATTEND Physician Assistant
DX: R39.15 Urgency of urination (principal); Z12.5 Encounter for screening for malignant neoplasm of prostate; Z79.899 Other long term (current) drug therapy; Z79.51 Long term (current) use of inhaled steroids; Z79.82 Long term (current) use of aspirin
CPT/HCPCS: 81001; 87086; G0103

== ENCOUNTER → 2023-12-03 | Outpatient (REF) | payer MEDICARE, OTHER ==
[2023-12-03 13:01] LABS: ALBUMIN 4.1 G/DL (3.2-5.2); ALKALINE PHOSPHATASE 79 U/L (46-116); ALT/SGPT 27 U/L (7.0-40); AST/SGOT 19 U/L (<34); BLOOD UREA NITROGEN 24 MG/DL (9-23); CALCIUM LEVEL 9.7 MG/DL (8.3-10.6); CARBON DIOXIDE LEVEL 30 MMOL/L (20-31); CHLORIDE LEVEL 110 MMOL/L (98-107); CREATININE FOR GFR 0.92 MG/DL (0.70-1.30); GLOMERULAR FILTRATION RATE > 60.0 (>42); GLUCOSE, FASTING 90 MG/DL (74-106); MAGNESIUM LEVEL 2.2 MG/DL (1.8-2.4); POTASSIUM SERUM 4.3 MMOL/L (3.5-5.1); SODIUM LEVEL 143 MMOL/L (136-145); TOTAL PROTEIN 7.2 G/DL (5.7-8.2)
[2023-12-03 13:04] LABS: THYROID STIMULATING HORMONE 1.831 uIU/ML (0.55-4.78)
== END ==
LOC: M LABDRAWC 11:51
PROVIDERS: ATTEND Physician Assistant
DX: I49.3 Ventricular premature depolarization (principal); E07.9 Disorder of thyroid, unspecified

== ENCOUNTER → 2023-12-22 | Outpatient (REF) | payer MEDICARE, OTHER, BC | LOC: M SFHCDERM 17:44 | PROVIDERS: ATTEND Physician Assistant | DX: D04.22 Carcinoma in situ of skin of left ear and external auricular canal (principal) ==

== ENCOUNTER → 2024-02-16 | Outpatient (REF) | payer MEDICARE, OTHER | LOC: M SFHCDERM 17:24 | PROVIDERS: ATTEND Physician Assistant | DX: D04.5 Carcinoma in situ of skin of trunk (principal) ==

== ENCOUNTER → 2024-04-06 | Outpatient (REF) | payer MEDICARE, BC ==
[2024-04-06 12:23] LABS: ALBUMIN 3.9 G/DL (3.2-5.2); ALKALINE PHOSPHATASE 76 U/L (40-129); ALT/SGPT 37 U/L (7.0-40); AST/SGOT 22 U/L (<34); BILIRUBIN,TOTAL 0.9 MG/DL (0.3-1.2); BLOOD UREA NITROGEN 23 MG/DL (9-23); CALCIUM LEVEL 9.3 MG/DL (8.3-10.6); CARBON DIOXIDE LEVEL 29 MMOL/L (20-31); CHLORIDE LEVEL 107 MMOL/L (98-107); CHOLESTEROL LEVEL 130 MG/DL (<200); CHOLESTEROL RISK RATIO 2.34 (<5); CREATININE FOR GFR 0.91 MG/DL (0.70-1.30); FREE T4 1.42 NG/DL (0.89-1.76); GLOMERULAR FILTRATION RATE > 60.0 (>42); GLUCOSE, FASTING 108 MG/DL (74-106); HDL CHOLESTEROL 55.5 MG/DL (>40); LDL CHOLESTEROL 58.9 MG/DL (<100); NON-HDL-C 74.5 MG/DL; POTASSIUM SERUM 4.3 MMOL/L (3.5-5.1); SODIUM LEVEL 144 MMOL/L (136-145); THYROID STIMULATING HORMONE 0.781 uIU/ML (0.55-4.78); TOTAL PROTEIN 7.4 G/DL (5.7-8.2); TRIGLYCERIDES LEVEL 78 MG/DL (<150)
[2024-04-06 13:11] LABS: HEMOGLOBIN A1c 5.5 % (4.0-6.0)
== END ==
LOC: M SFHCCLAY 08:53
PROVIDERS: ATTEND Nurse Practitioner Family
DX: Z00.00 Encounter for general adult medical examination without abnormal findings (principal); R45.4 Irritability and anger; F41.8 Other specified anxiety disorders; G47.33 Obstructive sleep apnea (adult) (pediatric); E78.5 Hyperlipidemia, unspecified; Z85.828 Personal history of other malignant neoplasm of skin; Z79.899 Other long term (current) drug therapy

== ENCOUNTER → 2024-04-14 | Outpatient (REF) | payer MEDICARE, BC | LOC: M SFHCDERM 17:35 | PROVIDERS: ATTEND Physician Assistant | DX: L82.1 Other seborrheic keratosis (principal); L90.5 Scar conditions and fibrosis of skin ==

== ENCOUNTER → 2024-05-05 | Outpatient (CLI) | payer MEDICARE, BC ==
[2024-05-05 11:57] LABS: HEMATOCRIT 44.6 % (42.0-52.0); HEMOGLOBIN 14.8 g/dl (13.5-17.5); MEAN CORPUSCULAR HGB CONC 33.2 g/dl (32.0-36.5); MEAN CORPUSCULAR VOLUME 93.5 fl (80.0-96.0); PLATELET COUNT, AUTOMATED 185 10^3/uL (150-450); RED BLOOD COUNT 4.77 10^6/uL (4.30-6.10); WHITE BLOOD COUNT 6.4 10^3/uL (4.0-10.0)
== END ==
LOC: M EKG 09:00
PROVIDERS: ATTEND Physician Assistant
DX: R06.02 Shortness of breath (principal); I49.3 Ventricular premature depolarization

== ENCOUNTER → 2024-05-05 | Outpatient (CLI) | payer MEDICARE, BC | LOC: M CLY 06:54 | PROVIDERS: ATTEND Physician Assistant | DX: R06.02 Shortness of breath (principal); I49.3 Ventricular premature depolarization ==

== ENCOUNTER → 2024-05-12 | Outpatient (CLI) | payer MEDICARE, BC | LOC: M CARPUL 13:31 | PROVIDERS: ATTEND Physician Assistant | DX: R06.02 Shortness of breath (principal) ==

== ENCOUNTER → 2024-05-31 | Outpatient (REF) | payer MEDICARE, BC ==
[2024-05-31 18:25] LABS: ALKALINE PHOSPHATASE 73 U/L (40-129); ALT/SGPT 33 U/L (7.0-40); AST/SGOT 22 U/L (<34); BILIRUBIN,TOTAL 0.8 MG/DL (0.3-1.2); BLOOD UREA NITROGEN 15 MG/DL (9-23); C REACTIVE PROTEIN QUANTITATIV 15.04 MG/DL (<1.0); CALCIUM LEVEL 8.4 MG/DL (8.3-10.6); CARBON DIOXIDE LEVEL 27 MMOL/L (20-31); CHLORIDE LEVEL 104 MMOL/L (98-107); CREATININE FOR GFR 0.78 MG/DL (0.70-1.30); GLOMERULAR FILTRATION RATE > 60.0 (>42); GLUCOSE, FASTING 115 MG/DL (74-106); POTASSIUM SERUM 3.7 MMOL/L (3.5-5.1); SODIUM LEVEL 141 MMOL/L (136-145); TOTAL PROTEIN 6.7 G/DL (5.7-8.2)
[2024-05-31 18:34] LABS: HEMATOCRIT 42.9 % (42.0-52.0); HEMOGLOBIN 14.4 g/dl (13.5-17.5); MEAN CORPUSCULAR HGB CONC 33.6 g/dl (32.0-36.5); MEAN CORPUSCULAR VOLUME 92.5 fl (80.0-96.0); PLATELET COUNT, AUTOMATED 207 10^3/uL (150-450); RED BLOOD COUNT 4.64 10^6/uL (4.30-6.10); WHITE BLOOD COUNT 10.5 10^3/uL (4.0-10.0)
[2024-05-31 18:37] LABS: PROCALCITONIN 0.08 ng/ml
[2024-05-31 19:41] LABS: EOSINOPHILS 2 % (0-3); LYMPHOCYTES 24 % (16-44); MONOCYTES 4 % (0-5); NEUTROPHILS 70 % (28-66); PLATELET ESTIMATE NORMAL (NORMAL)
== END ==
LOC: M SFHCCLAY 10:39
PROVIDERS: ATTEND Physician Assistant Medical
DX: R05.1 Acute cough (principal)

== ENCOUNTER → 2024-06-02 | Outpatient (REF) | payer MEDICARE, BC | LOC: M SFHCCLAY 11:30 | PROVIDERS: ATTEND Physician Assistant Medical | DX: R19.7 Diarrhea, unspecified (principal) ==

== ENCOUNTER → 2024-06-22 | Outpatient (REF) | payer MEDICARE, OTHER | LOC: M SFHCCLAY 17:14 | PROVIDERS: ATTEND Nurse Practitioner Family | DX: R06.02 Shortness of breath (principal) ==

== ENCOUNTER → 2024-07-04 | Outpatient (REF) | payer MEDICARE, BC ==
[2024-07-04 18:30] LABS: BASO % 0.5 % (0.0-1.0); EOS # 0.1 10^3/uL (0.0-0.5); EOS % 2.4 % (0.0-3.0); HEMATOCRIT 44.5 % (42.0-52.0); HEMOGLOBIN 14.6 g/dl (13.5-17.5); LYMPH # 1.2 10^3/uL (1.5-5.0); LYMPH % 20.3 % (24.0-44.0); MEAN CORPUSCULAR HGB CONC 32.8 g/dl (32.0-36.5); MEAN CORPUSCULAR VOLUME 94.5 fl (80.0-96.0); MONO # 0.4 10^3/uL (0.0-0.8); MONO % 6.8 % (2.0-8.0); NEUTROPHILS % 69.3 % (36.0-66.0); PLATELET COUNT, AUTOMATED 201 10^3/uL (150-450); RED BLOOD COUNT 4.71 10^6/uL (4.30-6.10); WHITE BLOOD COUNT 5.7 10^3/uL (4.0-10.0)
[2024-07-04 18:31] LABS: ALBUMIN 3.7 G/DL (3.2-5.2); ALKALINE PHOSPHATASE 65 U/L (40-129); ALT/SGPT 23 U/L (7.0-40); AST/SGOT 18 U/L (<34); BILIRUBIN,TOTAL 0.6 MG/DL (0.3-1.2); BLOOD UREA NITROGEN 17 MG/DL (9-23); CALCIUM LEVEL 9.2 MG/DL (8.3-10.6); CARBON DIOXIDE LEVEL 28 MMOL/L (20-31); CHLORIDE LEVEL 107 MMOL/L (98-107); GLOMERULAR FILTRATION RATE > 90.0 (>42); GLUCOSE, FASTING 84 MG/DL (74-106); POTASSIUM SERUM 4.6 MMOL/L (3.5-5.1); SODIUM LEVEL 142 MMOL/L (136-145); THYROID STIMULATING HORMONE 0.991 uIU/ML (0.55-4.78); TOTAL PROTEIN 6.8 G/DL (5.7-8.2)
[2024-07-04 18:32] LABS: FREE T4 1.33 NG/DL (0.89-1.76)
== END ==
LOC: M SFHCCLAY 10:29
PROVIDERS: ATTEND Nurse Practitioner Family
DX: J18.9 Pneumonia, unspecified organism (principal); R53.83 Other fatigue